=== PATIENT | male | born 1995 | race African-American/Black ===

== ENCOUNTER 2020-04-01 14:09 | Emergency (ER) | payer OTHER ==
[~2020-04-01] VITALS: Ht 185.4 cm; Wt 106.8 kg
[2020-04-01 14:20] VITALS: TEMP 98.2
[2020-04-01] MEDS ORDERED: FLEXERIL 1010 MG/TAB PO (15:42)
[2020-04-01] MEDS ORDERED: MOTRIN 800800 MG/TAB PO (15:42)
[2020-04-01] MEDS ORDERED: NORCO 325 MG-51 TAB PO ×2 (15:42→15:45)
[2020-04-01 16:58] VITALS: BP 125/76; PULSE 76
== END 2020-04-01 16:15 | disposition home or self-care (01) ==
LOC: COL.ER 14:09
DX: S33.5XXA Sprain of ligaments of lumbar spine, initial encounter (principal); X50.9XXA Other and unspecified overexertion or strenuous movements or postures, initial encounter
CPT/HCPCS: J1885; J2360